=== PATIENT | female | born 1990 | race Hispanic/Latino ===

== ENCOUNTER 2020-04-26 08:40 | Day surgery (SDC) | payer OTHER ==
[2020-04-23 12:33] LABS: Absolute Lymphocytes (CBC) 3.3 K/uL (0.7-4.9); Basophils % 0.7 % (0-1.3); Hematocrit 38.8 % (36.0-45.0); Lymphocytes % 45.1 % (15.3-44.8); MPV 8.9 fL (7.6-11.3); RBC Red Blood Cell Count 4.25 M/uL (3.86-4.86)
[2020-04-23 12:48] LABS: BUN Blood Urea Nitrogen 14 mg/dL (7-18); Bicarbonate 27 mmol/L (21-32); Glucose Level 88 mg/dL (74-106); Potassium 3.9 mmol/L (3.5-5.1); Sodium Level 141 mmol/L (136-145)
[2020-04-26 09:12] LABS: Specific Gravity 1.025 (1.005-1.030)
[2020-04-26] MEDS ORDERED: Ringers Lactate 1,000 ML IV ONE ×2 (09:14→12:17)
[2020-04-26] MEDS ORDERED: CEFAZOLIN/SWI 1gm 1 GM/10 ML SYR ONE (09:14)
[2020-04-26] MEDS ORDERED: FENTANYL CITR 100 MCG/2 ML ONE (10:48)
[2020-04-26] MEDS ORDERED: propofoL 200 MG/20 ML VIAL IV ONE (10:48)
[2020-04-26] MEDS ORDERED: LIDOCAINE 2% MPF 5 ML VIAL ONE (10:48)
[2020-04-26] MEDS ORDERED: MIDAZOLAM HCL 2 MG/2 ML INJ ONE (10:48)
[2020-04-26] MEDS ORDERED: ONDANSETRON 4 MG/2 ML VIAL ONE ×2 (10:51→13:27)
[2020-04-26] MEDS ORDERED: GLYCOPYRROLATE 0.2 MG/ML SYR ONE ×2 (10:53→10:54)
[2020-04-26] MEDS ORDERED: ROCURONIUM 50 MG/5 ML VIAL IV ONE (10:54)
[2020-04-26] MEDS ORDERED: KETOROLAC 30 MG/ML INJ ONE (11:26)
--- NOTE | 2020-04-26 11:45 | P.BOP ---
Preoperative diagnosis: recurrent ventral hernia Postoperative diagnosis: same Primary procedure: Open repair of recurrent ventral hernia Loss Prevention Operations Manager: Gina Guerra (David) Estimated blood loss: <10cc Specimen: hernia sac Findings: as above Anesthesia: General Complications: None Transferred to: Recovery Room Condition: Good
[2020-04-26 12:08] VITALS: O2SAT 100
[2020-04-26] MEDS ORDERED: MEPERIDINE HCL 25 MG/ML SYR ONE (12:14)
[2020-04-26] MEDS ORDERED: HYDROMORPHONE HCL 1 MG/ML INJ ONE (12:33)
--- NOTE | 2020-04-26 13:16 | DS ---
Diagnosis: Recurrent ventral hernia. Procedure: Open repair of recurrent ventral hernia. Disposition: Home. Activity: As tolerated, no heavy lifting. Plan: Follow up in my office in 1 week. Call for appointment at [phone]. Keep area dry until she sees me in my office. Medications: Include Tylenol No.3 q.4 hours p.r.n. pain, Bactrim DS p.o. b.i.d., Zofran 4 q.6 p.r.n. nausea. ISAMAR/MASOUD Voice ID: [id number] Report ID: [id number]
--- NOTE | 2020-04-26 13:16 | OP ---
Date of Procedure: 04/26/2020 Surgeon: Stas Arnold MD Front Office Clerk: Gina Guerra. Preoperative Diagnosis: Recurrent ventral hernia. Postoperative Diagnosis: Recurrent ventral hernia. Procedure: Open repair of recurrent ventral hernia. Estimated Blood Loss: Less than 10 mL. Specimen: Hernia sac. Findings: As above. Anesthesia: General plus local. Indications: This is the case of a 30-year-old patient with a history of a ventral hernia. The artemio ent has the that developed into hernia. She has a large area that is recti, making the are a burnable. When she got a second time, she broke the previous repair and now is here for a new repair. The benefits, alternatives, and risks of open repair of a ventral hernia with possible mesh, possible laparoscopic assist fully explained to the patient which include, but not limited to i nfection, bleeding, damage to adjacent structures, anesthesia complication, recurrence, VA, and even . She also understands this may not relieve any symptoms. She might need more than one surgica l intervention. She understands the importance of no heavy lifting and the importance of abdominal b annette and not gaining weight. Procedure In Detail: The patient was brought to the operating room and placed in supine position. A nesthesia was done without complication. Abdominal area was prepped and draped in a sterile fashion. Local anesthesia was applied followed by sharp incision of the skin in the midline. Incision was c arried down. We noticed a previous scar tissue present and we proceeded to carefully remove the katrin ia sac and some incarcerated omentum in that area was carefully released after releasing adhesions. The fascial edges were defined, clean. Since she was not that long , we still have some rela x abdominal fascia in that region and that helped me to close the area without tension and without a mesh. There is a large hernia present so we proceeded to carefully do a deekpe-kp-wthca #1 Vicryl. She is very skinny with brisk bleeding in subcutaneous fat, so we trying to get the Vicryl to avoid h ave needle like projections of stitches that bothers her. Vicryl #1 was placed multiple times and th e entire defect was closed. The area was irrigated. Subcutaneous tissue was closed with 3-0 chromic and skin in a subcuticular fashion with 4-0 PDS. Dressings were applied to the area. The patient t olerated the procedure well. The patient sent to recovery in stable condition. ISAMAR/MASOUD Voice ID: [id number] Report ID: [id number]
[2020-04-26] MEDS ORDERED: CODEINE 30MG/APAP 300MG TAB ONE (13:27)
[2020-04-26 14:13] VITALS: BP 92/60; TEMP 98.4
== END 2020-04-26 14:10 | disposition home or self-care (01) ==
LOC: OR 08:40
PROVIDERS: ATTEND Surgery
PROC: 0WQF0ZZ Repair Abdominal Wall, Open Approach (ICD-10-PCS; principal; 2020-04-26 11:30)
DX: K43.2 Incisional hernia without obstruction or gangrene (principal); Z20.828 Contact with and (suspected) exposure to other viral communicable diseases
CPT/HCPCS: 85025; 80048; 36415; 81025; 88302; 49565; U0002; J2704; J2250; J3010; J2175; J1170; J0690; J7120 ×2; J2405 ×2